=== PATIENT | male | born 1940 | race Caucasian/White ===

== ENCOUNTER 2019-01-05 08:20 | Outpatient (CLI) | payer MEDICARE, BC ==
[~2019-01-05] VITALS: Ht 175.3 cm; Wt 86.6 kg
[2019-01-05 08:12] LABS: HEMATOCRIT 35.4 % (42.0-54.0); HEMOGLOBIN 11.7 g/dL (13.5-17.5); MCH 26.8 pg (26.0-34.0); MCHC 33.1 g/dL (31.0-37.0); MCV 81.2 fL (80.0-100.0); MEAN PLATELET VOLUME 8.8 fL (7.4-10.4); RBC 4.36 10x6/uL (4.20-6.10); RDW 15.6 % (11.5-14.5); WBC 5.5 10x3/uL (4.8-10.8)
[~2019-01-05 08:20] MED LIST: ADVAIR HFA [SP]12 GM INH; ALBUTEROL SULF8.5 GM INH; ASCORBIC ACID500 MG PO; ASPIRIN EC81 M1 PO; CENTRUM MEN'S1 EACH PO; FLUTICASONE PRO16 GM NASAL; GLIPIZIDE10 MG PO; GLUCOPHAGE500 MG PO; IPRAT-ALBUT 0.5-3 ML UPD; LYRICA50 MG PO; MAXZIDE 75/501 TAB PO; MEGA RED PO; PEPCID AC20 MG PO; REQUIP0.25 MG PO; SINGULAIR10 MG PO
[2019-01-05 08:33] LABS: CALC OSMOLALITY 274 mosm/kg (275-300); CALCIUM 9.3 mg/dL (8.5-10.1); CARBON DIOXIDE 29.2 mmol/L (21.0-32.0); CHLORIDE - SERUM 97 mmol/L (98-107); CREATININE - SERUM 0.9 mg/dL (0.6-1.3); GLUCOSE 103 mg/dL (74-106); POTASSIUM - SERUM 3.6 mmol/L (3.5-5.1); SODIUM 136 mmol/L (136-145); UREA NITROGEN 21 mg/dL (7-18); eGFR NON AFRICAN AMERICAN 87 mL/min (90-120)
[2019-01-05 08:35] VITALS: BP 137/79; Ht 175.3 cm; Wt 86.6 kg
== END 2019-01-05 10:40 | disposition home or self-care (01) ==
LOC: D.OPS 08:20
PROVIDERS: Anesthesiology; ATTEND Surgery
DX: K40.91 Unilateral inguinal hernia, without obstruction or gangrene, recurrent (principal)

== ENCOUNTER 2019-01-31 05:37 | Day surgery (SDC) | payer MEDICARE, BC ==
[~2019-01-31] VITALS: Ht 175.3 cm; Wt 86.6 kg
[2019-01-31 06:06] LABS: HEMATOCRIT 34.7 % (42.0-54.0); HEMOGLOBIN 11.1 g/dL (13.5-17.5); MCH 26.1 pg (26.0-34.0); MCV 81.5 fL (80.0-100.0); MEAN PLATELET VOLUME 8.3 fL (7.4-10.4); RBC 4.26 10x6/uL (4.20-6.10); RDW 15.6 % (11.5-14.5); WBC 5.1 10x3/uL (4.8-10.8)
[2019-01-31 06:14] LABS: CALC OSMOLALITY 277 mosm/kg (275-300); CALCIUM 8.8 mg/dL (8.5-10.1); CARBON DIOXIDE 28.7 mmol/L (21.0-32.0); CHLORIDE - SERUM 102 mmol/L (98-107); GLUCOSE 104 mg/dL (74-106); POTASSIUM - SERUM 3.6 mmol/L (3.5-5.1); SODIUM 138 mmol/L (136-145); UREA NITROGEN 17 mg/dL (7-18); eGFR NON AFRICAN AMERICAN 77 mL/min (90-120)
[2019-01-31 06:57] VITALS: BP 152/86; Ht 175.3 cm; Wt 86.6 kg
[2019-01-31] MEDS ORDERED: FLOMAX0.4 MG PO (09:52)
[2019-01-31] MEDS ORDERED: LASIX20 MG PO (09:52)
[2019-01-31] MEDS ORDERED: HYDROCODON-ACE1 EAC7 PO (09:52)
--- NOTE | 2019-01-31 10:48 | NUR ---
1045 NORCO AND FLOMAX GIVEN PER E-MAR. FAMILY AT BEDSIDE.
--- NOTE | 2019-01-31 11:57 | NUR ---
1155 FL DIET SERVED.
--- NOTE | 2019-01-31 13:13 | NUR ---
PT RESTING QUIETLY IN BED. DENIES PAIN/NEEDS AT THIS TIME. UNABLE TO VOID AT THIS TIME. DENIES FEELING NEED TO VOID. WILL CONTINUE TO MONITOR.
--- NOTE | 2019-01-31 16:43 | NUR ---
1630 IN AND OUT CATH WITH 18f BAUTISTA BY FIDE CUNHA WITH 550CC YELLOW URINE RETURN. PT. REQUESTS IN AND OUT CATH ONLY. 1645 NORCO 5MG X1 PO FOR PAIN RATED 6/10 STATES WANTS TO GET DRESSED TO GO HOME. GETTING DRESSED.
== END 2019-01-31 17:55 | disposition home or self-care (01) ==
LOC: D.OPS 05:37 → D.PAN 08:00 → D.OPS 08:00
PROVIDERS: ATTEND Surgery
DX: K40.91 Unilateral inguinal hernia, without obstruction or gangrene, recurrent (principal); Z01.812 Encounter for preprocedural laboratory examination

== ENCOUNTER → 2019-09-06 09:21 | Outpatient (CLI) | payer MEDICARE, BC ==
[2019-01-31 06:57] VITALS: BMI 28.2
[~2019-09-06 09:21] MED LIST changes: +FLOMAX0.4 MG PO; +HYDROCODON-ACE1 EAC7 PO; +LASIX20 MG PO
== END | disposition home or self-care (01) ==
LOC: D.US 09-05 14:00
PROVIDERS: ATTEND Surgery
DX: N43.3 Hydrocele, unspecified (principal)